=== PATIENT | female | born 1990 | race Two or more races ===

== ENCOUNTER 2018-12-10 20:05 | Emergency (ER) | payer SELFPAY | END 2018-12-10 21:58 | disposition left against medical advice (07) | LOC: ER 20:05 | DX: M79.602 Pain in left arm (principal); R07.89 Other chest pain; Z53.21 Procedure and treatment not carried out due to patient leaving prior to being seen by health care provider ==

== ENCOUNTER 2018-12-11 08:00 | Emergency (ER) | payer MEDICAID ==
[~2018-12-11] VITALS: Ht 154.9 cm; Wt 82.0 kg
[2018-12-11] MEDS ORDERED: BACITRACIN ZINC OINT UDPKT TOP ONE (08:45)
[2018-12-11] MEDS ORDERED: TETANUS, DIPHTHERIA, PERTUSSIS VAC/PF 0.5ML (>7YR OLD) IM ONE (08:45)
[2018-12-11] MEDS ORDERED: IBUPROFEN 600MG TABLET PO ONE (08:45)
[2018-12-11] MEDS ORDERED: BACITRACIN 15GM TUBE TOP NR (09:15)
[2018-12-11 09:28] VITALS: BP 128/74
== END 2018-12-11 09:47 | disposition home or self-care (01) ==
LOC: ER 08:00
DX: L02.414 Cutaneous abscess of left upper limb (principal); Z23 Encounter for immunization
CPT/HCPCS: 10060; 81025; 90715; 96372; 99283

== ENCOUNTER 2018-12-13 08:16 | Emergency (ER) | payer MEDICAID ==
[~2018-12-13] VITALS: Ht 154.9 cm; Wt 81.0 kg
[2018-12-13 08:38] VITALS: BP 128/62
== END 2018-12-13 11:45 | disposition home or self-care (01) ==
LOC: ER 08:16
DX: M79.622 Pain in left upper arm (principal); Z88.0 Allergy status to penicillin
CPT/HCPCS: 81025; 99282

== ENCOUNTER 2019-01-22 17:31 | Emergency (ER) | payer MEDICAID ==
[~2019-01-22] VITALS: Ht 154.9 cm; Wt 79.0 kg
[2019-01-22 17:48] VITALS: BP 132/82
== END 2019-01-22 21:36 | disposition left against medical advice (07) ==
LOC: ER 17:31
DX: Z53.21 Procedure and treatment not carried out due to patient leaving prior to being seen by health care provider (principal)